=== PATIENT | female | born 1980 | race Caucasian/White ===

== ENCOUNTER 2016-12-01 17:49 | Emergency (ER) | payer BC ==
[2016-12-01 17:55] VITALS: BP 117/69; PULSE 89; TEMP 98.1; BMI 27.4
--- NOTE | 2016-12-01 18:44 | PDOC ---
History of Present Illness <Batsheva Kaur Inge - Last Filed: 12/01/16 21:30> - General History Source: Patient Exam Limitations: No Limitations - History of Present Illness Initial Comments: 12/01/16 21:33 The patient is a 36 year old female A2, who is 10 weeks , with no significant past medical history, who presents to the emergency department complaining of 1 day of vaginal bleeding and cramping. The patient states that her director of event marketing told her she was 7 weeks on 10/29/16. She states that she noticed light spotting yesterday morning. She was cramping throughout the night. She notes that she was heavily bleeding and cramping all day today. She changed her pad 3 times in the last 2 hours. Denies nausea, vomiting, diarrhea. Allergies: none reported Social Hx: No tobacco use. PCP: Dr. Manning <Stacey Bautista - Last Filed: 12/01/16 21:36> - General Chief Complaint: Vaginal Bleeding Stated Complaint: 10 WKS PRG/VAGINAL BLEEDING Time Seen by Provider: 12/01/16 18:42 Past History - Past Medical History Other medical history: none - Psycho/Social/Smoking Cessation Hx Anxiety: No Suicidal Ideation: No Smoking History: Never smoked Have you smoked in the past 12 months: No Information on smoking cessation initiated: No Hx Alcohol Use: No Drug/Substance Use Hx: No Substance Use Type: None <Batsheva Kaur Inge - Last Filed: 12/01/16 21:30> <Stacey Bautista - Last Filed: 12/01/16 21:36> - Past Medical History Allergies/Adverse Reactions: Allergies Allergy/AdvReac Type Severity Reaction Status Date / Time No Known Allergies Allergy Verified 12/01/16 17:51 Home Medications: Ambulatory Orders Vit/Iron Fumarate/FA [ Tablet] 1 each PO DAILY 12/01/16 Review of Systems - Review of Systems Comments:: 12/01/16 21:33 CONSTITUTIONAL: Absent: fever, chills, diaphoresis, generalized weakness, malaise, loss of appetite HEENT: Absent: rhinorrhea, nasal congestion, throat pain, throat swelling, difficulty swallowing, mouth swelling, ear pain, eye pain, visual Changes CARDIOVASCULAR: Absent: chest pain, syncope, palpitations, irregular heart rate, lightheadedness , peripheral edema RESPIRATORY: Absent: cough, shortness of breath, dyspnea with exertion, orthopnea, wheezing, stridor, hemoptysis GASTROINTESTINAL: Absent: abdominal pain, abdominal distension, nausea, vomiting, diarrhea, constipation, melena, hematochezia GENITOURINARY: Present: 1 day of vaginal bleeding and abdominal cramping. Absent: dysuria, frequency, urgency, hesitancy, hematuria, flank pain, genital pain MUSCULOSKELETAL: Absent: myalgia, arthralgia, joint swelling SKIN: Absent: rash, itching, pallor HEMATOLOGIC/IMMUNOLOGIC: Absent: easy bleeding, easy bruising, lymphadenopathy, frequent infections ENDOCRINE: Absent: unexplained weight gain, unexplained weight loss, heat intolerance, cold intolerance NEUROLOGIC: Absent: headache, focal weakness or paresthesias, dizziness, unsteady gait, seizure, mental status changes, bladder or bowel incontinence PSYCHIATRIC: Absent: anxiety, depression, suicidal or homicidal ideation, hallucinations. <Stacey Bautista - Last Filed: 12/01/16 21:36> *Physical Exam - Vital Signs Last Vital Signs Temp Pulse Resp BP Pulse Ox 98.1 F 89 18 117/69 100 12/01/16 17:51 12/01/16 17:51 12/01/16 17:51 12/01/16 17:51 12/01/16 17:51 <Batsheva Kaur - Last Filed: 12/01/16 21:30> - Vital Signs Last Vital Signs Temp Pulse Resp BP Pulse Ox 98.1 F 89 18 117/69 100 12/01/16 17:51 12/01/16 17:51 12/01/16 17:51 12/01/16 17:51 12/01/16 17:51 - Physical Exam Comments: 12/01/16 21:33 GENERAL: Well developed, well nourished. Awake and alert. In no acute distress. HEENT: Normocephalic, atraumatic. PERRLA, EOMI. No conjunctival pallor. Sclera are non- icteric. Moist mucous membranes. Oropharynx is clear. NECK: Supple. Full ROM. No JVD. Carotid pulses 2+ and symmetric, without bruits. No thyromegaly. No lymphadenopathy. CARDIOVASCULAR: Regular rate and rhythm. No murmurs, rubs, or gallops. Distal pulses are 2+ and symmetric. PULMONARY: No evidence of respiratory distress. Lungs clear to auscultation bilaterally. No wheezing, rales or rhonchi. ABDOMINAL: Soft. Non-tender. Non-distended. No rebound or guarding. No organomegaly. Normoactive bowel sounds. PELVIC: Cervical ost was closed. Mild bleeding, but no clots present on speculum exam. MUSCULOSKELETAL Normal range of motion at all joints. No bony deformities or tenderness. No CVA tenderness. EXTREMITIES: No cyanosis. No clubbing. No edema. No calf tenderness. SKIN: Warm and dry. Normal capillary refill. No rashes. No jaundice. NEUROLOGICAL: Alert, awake, appropriate. Cranial nerves 2-12 intact. No deficits to light touch and temperature in face, upper extremities and lower extremities. No motor deficits in the in face, upper extremities and lower extremities. Normoreflexic in the upper and lower extremities. Normal speech. Toes are downgoing bilaterally. Gait is normal without ataxia. PSYCHIATRIC: Cooperative. Good eye contact. Appropriate mood and affect. <Stacey Bautista - Last Filed: 12/01/16 21:36> ED Treatment Course - LABORATORY CBC & Chemistry Diagram: 12/01/16 18:45 <Batsheva Kaur - Last Filed: 12/01/16 21:30> - LABORATORY CBC & Chemistry Diagram: 12/01/16 18:45 - ADDITIONAL ORDERS Additional order review: Laboratory Results 12/01/16 12/01/16 12/01/16 20:30 18:45 18:45 Beta HCG, Quant 1792.5 Urine Color Ltyellow Urine Appearance Clear Urine pH 6.0 Ur Specific [place] 1.025 Urine Protein 1+ H Urine Glucose (UA) Negative Urine Ketones Negative Urine Blood 3+ H Urine Nitrite Negative Urine Bilirubin Negative Urine Urobilinogen Negative Ur Leukocyte Esterase Trace H Urine RBC 922 Urine WBC 24 Ur Epithelial Cells Rare Urine Mucus Rare Blood Type B POSITIVE Antibody Screen Negative 12/01/16 18:45 RBC 3.86 MCV 87.5 MCHC 33.4 RDW 13.4 MPV 7.8 Neutrophils % 79.5 Lymphocytes % 12.6 Monocytes % 5.1 Eosinophils % 2.1 Basophils % 0.7 - RADIOLOGY Radiograph Interpretation: 12/01/16 21:34 EXAM: OB ultrasound 14 weeks single fetus and transvaginal ultrasound, IMPRESSION: Failed first trimester . . Intrauterine pole, however without cardiac activity or movement.. . [place]-rump length 1.24 cm, corresponding to 7 weeks 3 days. . Tiny subchorionic hemorrhage. . Cervix is closed and measures 2.2 cm. Uterine posterior wall subserosal fibroid 2.2 x 1.7 x 1.7 cm. . Bilateral ovaries appear normal. Right ovary 3.6 x 1.6 x 2.1 cm. Left ovary 3.2 x 2.0 x 1.7 cm. Doppler arterial flow identified to the bilateral ovaries. Negative for ovarian torsion. . No pelvic free fluid. THIS DOCUMENT HAS BEEN ELECTRONICALLY SIGNED Que Garrido D.O. 12/01/2016 21:24 EST <Stacey Bautista - Last Filed: 12/01/16 21:36> *DC/Admit/Observation/Transfer <Batsheva Kaur - Last Filed: 12/01/16 21:30> - Attestations Scribe Attestion: 12/01/16 21:34 Documentation prepared by TEVIN Fernando, acting as medical insurance clerk for Batsheva Kaur MD. <Stacey Bautista - Last Filed: 12/01/16 21:36> Diagnosis at time of Disposition: Threatened in early - Discharge Dispostion Disposition: HOME Condition at time of disposition: Stable - Referrals Referrals: Xenia Manning [Primary Care Provider] - - Patient Instructions Printed Discharge Instructions: DI for Threatened Additional Instructions: please see your scrap crusher this week
[2016-12-01 18:57] LABS: BASOPHIL 0.7 % (0-2.0); EOSINOPHIL 2.1 % (0-4.5); MCH 29.3 pg (25.7-33.7); MCHC 33.4 g/dl (32.0-36.0); MEAN CELL VOLUME 87.5 fl (80-96); MEAN PLT VOLUME 7.8 fl (7.5-11.1); NEUTROPHILS 79.5 % (42.8-82.8); PLATELET COUNT 258 K/MM3 (134-434); RDW 13.4 % (11.6-15.6); WHITE BLOOD COUNT 15.7 K/mm3 (4.0-10.0)
[2016-12-01 20:41] LABS: URINE APPEARANCE CLEAR; URINE BILIRUBIN NEGATIVE (NEGATIVE); URINE COLOR LTYELLOW; URINE GLUCOSE (UA) NEGATIVE (NEGATIVE); URINE KETONE NEGATIVE (NEGATIVE); URINE NITRITE NEGATIVE (NEGATIVE); URINE UROBILINOGEN NEGATIVE E.U./dl (0.2-1.0)
[2016-12-01 20:46] LABS: URINE BLOOD 3+ (NEGATIVE); URINE LEUK ESTERASE TRACE (NEGATIVE); URINE PROTEIN 1+ (NEGATIVE)
[2016-12-01 20:50] LABS: URINE MUCUS RARE; URINE RBC 922 /hpf (0-3); URINE WBC 24 /hpf (3-5)
== END 2016-12-01 21:51 | disposition home or self-care (01) ==
LOC: JER 17:49
DX: O20.0 Threatened abortion (principal); Z3A.14 14 weeks gestation of pregnancy
CPT/HCPCS: 36415; 76830-TC; 81003; 81015; 84702; 85025; 86850; 86900; 86901; 99283-25